=== PATIENT | female | born 1975 ===

== ENCOUNTER 2018-09-13 12:47 | Emergency (ER) | payer OTHER ==
[2018-09-13] MEDS ORDERED: Sodium Chloride 0.9% 1,000 ML IV STA (13:14)
--- NOTE | 2018-09-13 13:31 | ED PDOC ---
HPI: Abdomen Time Seen by Provider: 09/13/18 13:05 Chief Complaint (Nursing): Abdominal Pain Chief Complaint (Provider): Abdominal Pain History Per: Patient History/Exam Limitations: no limitations Onset/Duration Of Symptoms: Days (past several weeks) Location Of Pain/Discomfort: RUQ Associated Symptoms: Nausea. denies: Fever, Diarrhea Additional Complaint(s): Shaista Bob is a 43 year old female with no past medical history, who presents to the emergency department with right upper quadrant pain, ongoing for several weeks. Patient was told [place] [facility] [place]. She presented today for evaluation for surgery. Patient denies any fever, yellowing of skin or eyes, or diarrhea. She does report that the pain is becoming more frequent. PMD: Richar Estrada Past Medical History Reviewed: Historical Data, Nursing Documentation, Vital Signs Vital Signs: Last Vital Signs Temp 98.3 F 09/13/18 12:55 Pulse 77 09/13/18 12:55 Resp 18 09/13/18 12:55 BP 127/74 09/13/18 12:55 Pulse Ox 99 09/13/18 12:55 - Medical History PMH: No Chronic Diseases - Surgical History Surgical History: No Surg Hx - Family History Family History: States: Unknown Family Hx - Home Medications Home Medications: Ambulatory Orders Medication Instructions Recorded RX: Ibuprofen [Motrin Tab] 600 mg PO Q6 PRN #15 tab 09/13/18 - Allergies Allergies/Adverse Reactions: Allergies Allergy/AdvReac Type Severity Reaction Status Date / Time Penicillins Allergy RASH Verified 09/13/18 12:51 Review of Systems ROS Statement: Except As Marked, All Systems Reviewed And Found Negative Constitutional: Negative for: Fever Eyes: Negative for: Other (yellowing of sclera) Gastrointestinal: Positive for: Nausea. Negative for: Diarrhea Skin: Negative for: Jaundice Neurological: Negative for: Weakness Physical Exam - Reviewed Nursing Documentation Reviewed: Yes Vital Signs Reviewed: Yes - Physical Exam Appears: Positive for: Non-toxic, No Acute Distress Head Exam: Positive for: ATRAUMATIC, NORMOCEPHALIC Skin: Positive for: Normal Color, Warm, Dry Eye Exam: Positive for: Normal appearance, EOMI, PERRL Neck: Positive for: Normal, Painless ROM, Supple Cardiovascular/Chest: Positive for: Regular Rate, Rhythm. Negative for: Murmur Respiratory: Positive for: Normal Breath Sounds. Negative for: Respiratory Distress Gastrointestinal/Abdominal: Positive for: Tenderness (RUQ tenderness). Negative for: Guarding Back: Positive for: Normal Inspection. Negative for: L CVA Tenderness, R CVA Tenderness, Vertebral Tenderness Extremity: Positive for: Normal ROM. Negative for: Pedal Edema, Deformity Neurologic/Psych: Positive for: Alert, Oriented - Laboratory Results Result Diagrams: 09/13/18 13:30 09/13/18 13:30 - ECG O2 Sat by Pulse Oximetry: 99 (RA) Pulse Ox Interpretation: Normal Medical Decision Making Medical Decision Making: Time: 1304 Plan: Work up for biliary colic including US and blood work --CMP --Lipase --ED urine --ED urine dipstick --CBC with differential --Sodium chloride 1,000 ml --Toradol 30 mg IM --US gallbladder and common duct labs/ LFTs unremarkable prelim US report +gallstones Scribe Attestation: Documented by Sam House, acting as a scribe for Tyler Guallpa III, DO. Provider Scribe Attestation: All medical record entries made by the Scribe were at my direction and personally dictated by me. I have reviewed the chart and agree that the record accurately reflects my personal performance of the history, physical exam, medical decision making, and the department course for this patient. I have also personally directed, reviewed, and agree with the discharge instructions and disposition. Disposition - Clinical Impression Clinical Impression: Abdominal pain, Gallstones - Patient ED Disposition Is Patient to be Admitted: No - Disposition Referrals: [facility] [Outside] Disposition Time: 15:06 Condition: STABLE Additional Instructions: Followup with clinic for surgical evaluation. Return to ER for any worse or new pain. Seguimiento con clnica para la evaluacin quirrgica. Regrese a urgencias para cualquier dolor peor o nuevo. Prescriptions: RX: Ibuprofen [Motrin Tab] 600 mg PO Q6 PRN #15 tab PRN Reason: Pain, Moderate (4-7) Instructions: Gallstones Forms: [facility] (Surinamese) Print Language: GREEK Patient Signed Over To: Nohemi Ledezma Handoff Comments: US report
[2018-09-13 13:42] LABS: BASO # 0.1 K/uL (0.0-0.2); EOS # 0.1 K/uL (0.0-0.7); EOS % 1.9 % (0.0-4.0); HEMOGLOBIN 12.8 g/dL (12.0-16.0); LYMPH # 2.2 K/uL (1.0-4.3); LYMPH % 32.8 % (20.0-40.0); MEAN CELL VOLUME 94.4 fl (81.0-99.0); MEAN CORPUSCULAR HEMOGLOBIN 31.4 pg (27.0-31.0); MEAN CORPUSCULAR HGB CONC 33.3 g/dL (33.0-37.0); MEAN PLATELET VOLUME 8.7 fl (7.2-11.7); MONO # 0.4 K/uL (0.0-0.8); MONO % 5.7 % (0.0-10.0); NEUT # 3.9 K/uL (1.8-7.0); NEUT % 58.6 % (50.0-75.0); NRBC % 0.5 % (0.0-0.0); RBC 4.08 Mil/uL (3.80-5.20); RED CELL DISTRIBUTION WIDTH 13.8 % (11.5-14.5); WHITE BLOOD COUNT 6.7 K/uL (4.8-10.8)
[2018-09-13 14:11] LABS: ALB/GLOB RATIO 1.2 (1.0-2.1); ALBUMIN 4.5 g/dL (3.5-5.0); ALT/SGPT 45 U/L (9-52); AST/SGOT 33 U/L (14-36); BLOOD UREA NITROGEN 16 mg/dl (7-17); CALCIUM 9.1 mg/dL (8.4-10.2); GFR NON-AFRICAN AMERICAN > 60; LIPASE 138 U/L (23-300)
--- NOTE | 2018-09-13 16:22 | US ---
Date of service: 09/13/2018 HISTORY: History gallstones worsening pain COMPARISON: None. TECHNIQUE: Sonographic evaluation of the right upper quadrant of the abdomen. FINDINGS: LIVER: Measures 14.0 cm in length. Normal echogenicity of the liver parenchyma. No mass. No intrahepatic bile duct dilatation. GALLBLADDER: Cholelithiasis. No sonographic Monzon sign. COMMON BILE DUCT: Measures 6.0 mm. No stones. No dilatation. PANCREAS: Pancreas not visualized due to body habitus and bowel gas RIGHT KIDNEY: Measures 10.4 x 4.5 x 4.4 cm in length. Normal echogenicity. No calculus, mass, or hydronephrosis. Small lower pole cyst measuring 2.0 cm in greatest dimension. AORTA: No aneurysmal dilatation. IVC: Unremarkable. OTHER FINDINGS: None . IMPRESSION: Cholelithiasis. No sonographic Monzon sign. Common bile duct measures approximately 6 mm. Pancreas not visualized due to body habitus and bowel gas.
--- NOTE | 2018-09-13 16:55 | ED PDOC ---
- Laboratory Results Result Diagrams: 09/13/18 13:30 09/13/18 13:30 - ECG O2 Sat by Pulse Oximetry: 99 (RA) Pulse Ox Interpretation: Normal Medical Decision Making Medical Decision Makin Patient endorsed to me by Dr. Guallpa, pending US. [id number] FINDINGS: LIVER: Measures 14.0 cm in length. Normal echogenicity of the liver parenchyma. No mass. No intrahepatic bile duct dilatation. GALLBLADDER: Cholelithiasis. No sonographic Monzon sign. COMMON BILE DUCT: Measures 6.0 mm. No stones. No dilatation. PANCREAS: Pancreas not visualized due to body habitus and bowel gas RIGHT KIDNEY: Measures 10.4 x 4.5 x 4.4 cm in length. Normal echogenicity. No calculus, mass, or hydronephrosis. Small lower pole cyst measuring 2.0 cm in greatest dimension. AORTA: No aneurysmal dilatation. IVC: Unremarkable. OTHER FINDINGS: None . IMPRESSION: Cholelithiasis. No sonographic Monzon sign. Common bile duct measures approximately 6 mm. Pancreas not visualized due to body habitus and bowel gas. Pt stable for discharge with clinic followup. ------- Scribe Attestation: Documented by Sam House, acting as a scribe for Nohemi Ledezma MD. Provider Scribe Attestation: All medical record entries made by the Scribe were at my direction and personally dictated by me. I have reviewed the chart and agree that the record accurately reflects my personal performance of the history, physical exam, medical decision making, and the department course for this patient. I have also personally directed, reviewed, and agree with the discharge instructions and disposition. Disposition - Clinical Impression Clinical Impression: Abdominal pain, Gallstones - POA Present On Arrival: None - Disposition Referrals: [facility] [Outside] Disposition: Routine/Home Disposition Time: 16:30 Condition: STABLE Additional Instructions: Followup with clinic for surgical evaluation. Return to ER for any worse or new pain. Seguimiento con clnica para la evaluacin quirrgica. Regrese a urgencias para cualquier dolor peor o nuevo. Prescriptions: Ibuprofen [Motrin Tab] 600 mg PO Q6 PRN #15 tab PRN Reason: Pain, Moderate (4-7) Instructions: Gallstones Forms: [facility] (Northern Irish) Print Language: URUGUAYAN
[2018-09-13 17:21] VITALS: RESP 19
[2018-09-13 17:38] VITALS: BP 126/78; PULSE 78; TEMP 97; O2SAT 98
== END 2018-09-13 17:39 | disposition home or self-care (01) ==
LOC: EDBD → H.ER 12:47
DX: K80.20 Calculus of gallbladder without cholecystitis without obstruction (principal); R10.11 Right upper quadrant pain; Z88.0 Allergy status to penicillin
CPT/HCPCS: 76705; 80053; 81025; 83690; 85025; 99283; J1885; J7030